=== PATIENT | female | born 1975 | race African-American/Black ===

== ENCOUNTER 2021-09-16 14:19 | Emergency (ER) | payer OTHER ==
[2021-09-16 15:05] VITALS: BP 124/79; PULSE 94; TEMP 97.7; BMI 29.2
[2021-09-16] MEDS ORDERED: CEPHALEXIN MONOHYDRATE 500 MG CAPSULE (UD) PO ONE (19:07)
[2021-09-16] MEDS ORDERED: CEPHALEXIN MONOHYDRATE 500 MG CAPSULE (UD) ONE (19:29)
== END 2021-09-16 22:42 | disposition home or self-care (01) ==
LOC: JER 14:19
DX: R21 Rash and other nonspecific skin eruption (principal); B34.9 Viral infection, unspecified
CPT/HCPCS: 0241U-QW; 71046-TC-FY; 99284-25

== ENCOUNTER → 2021-10-29 | Day surgery (SDC) | payer OTHER | END | disposition home or self-care (01) | LOC: JRADUS-SUR 11:58 | PROVIDERS: ATTEND Registered Nurse | PROC: 0H9U3ZX Drainage of Left Breast, Percutaneous Approach, Diagnostic (ICD-10-PCS; principal; 2021-10-29) | DX: N60.02 Solitary cyst of left breast (principal) | CPT/HCPCS: 19000; 76942-TC; 87899; 88173; 88305-TC ==

== ENCOUNTER → 2021-11-19 | Day surgery (SDC) | payer OTHER | END | disposition home or self-care (01) | LOC: JRADUS-SUR 10:21 | PROVIDERS: ATTEND Registered Nurse | PROC: 0H9U3ZX Drainage of Left Breast, Percutaneous Approach, Diagnostic (ICD-10-PCS; principal; 2021-11-19) | DX: N60.12 Diffuse cystic mastopathy of left breast (principal) | CPT/HCPCS: 19083; 87899; 88305-TC; A4648 ==

== ENCOUNTER 2023-11-12 13:34 | Emergency (ER) | payer OTHER ==
[2023-11-12 13:40] VITALS: BP 136/86; PULSE 61; RESP 18; TEMP 98.2; BMI 26.4
[2023-11-12] MEDS ORDERED: ACETAMINOPHEN INJECTION 100 ML ONE (14:16)
[2023-11-12] MEDS ORDERED: FAMOTIDINE 20 MG/50 ML IVPB 20 MG/50 ML MG IVPB ONE (14:16)
[2023-11-12 14:51] LABS: BASO % 1.1 % (0-2.0); EOS % 2.1 % (0-4.5); HEMATOCRIT 38.1 % (32.4-45.2); HEMOGLOBIN 12.9 GM/dL (10.7-15.3); LYMPH % 36.9 % (8-40); MCH 29.2 pg (25.7-33.7); MCHC 33.9 g/dl (32.0-36.0); MEAN PLT VOLUME 8.2 fl (7.5-11.1); MONO % 6.9 % (3.8-10.2); PLATELET COUNT 478 10^3/uL (134-434); RBC 4.43 M/mm3 (3.60-5.2); RDW 15.4 % (11.6-15.6); WHITE BLOOD COUNT 4.9 K/mm3 (4.0-10.0)
[2023-11-12] MEDS: FAMOTIDINE 20 MG/50 ML IVPB 20 MG/50 ML MG IVPB ONE (15:05)
[2023-11-12] MEDS: ACETAMINOPHEN 1000 MG/100 ML BAG IVPB ONE (15:05)
[2023-11-12 15:16] LABS: POTASSIUM 4.2 mmol/L (3.5-5.1)
[2023-11-12 15:21] LABS: ALBUMIN 3.8 g/dl (3.4-5.0); BLOOD UREA NITROGEN 12.6 mg/dL (7-18); CALCIUM 9.5 mg/dL (8.5-10.1)
[2023-11-12 15:24] LABS: CREATININE 0.6 mg/dL (0.55-1.3)
[2023-11-12 15:26] LABS: BILIRUBIN,TOTAL 0.5 mg/dL (0.2-1); TOT PROT 7.9 g/dl (6.4-8.2)
[2023-11-12 15:45] LABS: EPI CELLS >36 /uL (0-25.1); HYALINE CASTS 1 /uL (0-3.1); PH,URINE 5.5 (5.0-8.0); URINE APPEARANCE CLEAR; URINE BACTERIA 62 /uL (0-1359); URINE BILIRUBIN NEGATIVE (NEGATIVE); URINE COLOR YELLOW; URINE GLUCOSE (UA) NEGATIVE (NEGATIVE); URINE KETONE NEGATIVE (NEGATIVE); URINE LEUK ESTERASE NEGATIVE (NEGATIVE); URINE NITRITE NEGATIVE (NEGATIVE); URINE PROTEIN 1+ (NEGATIVE); URINE RBC 33 /uL (0-23.9); URINE WBC 11 /uL (0-25.8)
[2023-11-12 16:12] LABS: HIV INTERPRETATION NEGATIVE (NEGATIVE)
[2023-11-12] MEDS ORDERED: KETOROLAC TROMETHAMINE 15 MG/ML VIAL ONE (17:06)
[2023-11-12] MEDS: KETOROLAC TROMETHAMINE 15 MG/ML VIAL IVPUSH ONE (17:07)
== END 2023-11-12 18:13 | disposition home or self-care (01) ==
LOC: JER 13:34
PROC: 3E033GC Introduction of Other Therapeutic Substance into Peripheral Vein, Percutaneous Approach (ICD-10-PCS; principal; 2023-11-12)
PROC: 3E033NZ Introduction of Analgesics, Hypnotics, Sedatives into Peripheral Vein, Percutaneous Approach (ICD-10-PCS; 2023-11-12)
PROC: 3E0333Z Introduction of Anti-inflammatory into Peripheral Vein, Percutaneous Approach (ICD-10-PCS; 2023-11-12)
DX: R10.12 Left upper quadrant pain (principal); R10.13 Epigastric pain
CPT/HCPCS: 36415; 74177-TC; 80053; 81003; 83690; 84484; 84703; 85025; 86803; 87086; 87389; 93005; 93010; 96365; 96375; 99285-25; J0131

== ENCOUNTER 2024-06-13 15:57 | Emergency (ER) | payer OTHER ==
[2024-06-13 16:06] VITALS: BP 155/98; PULSE 86; RESP 18; TEMP 98.2; BMI 29.4
[2024-06-13 18:29] LABS: HCV DIAGNOSTIC IN-HOUSE W/RFLX NON-REACTIVE (NONREACTIVE)
[2024-06-13 18:30] LABS: HIV INTERPRETATION NEGATIVE (NEGATIVE)
== END 2024-06-13 17:10 | disposition home or self-care (01) ==
LOC: JER 15:57
DX: R05.9 Cough, unspecified (principal); R60.0 Localized edema; R09.81 Nasal congestion
CPT/HCPCS: 0241U-QW; 36415; 71046-TC-FY; 86803; 87389; 99284-25